=== PATIENT | female | born 1980 | race Caucasian/White ===

== ENCOUNTER 2023-10-28 14:43 | Outpatient (CLI) | payer OTHER, SELFPAY ==
--- NOTE | ~2023-10-28 | US_ITS ---
US pelvic complete w TV Ordering provider: Su Saleem APRN History: . N93.9 - Abnormal uterine and vaginal bleeding, unspecified . Comparison: None. Technique: Transabdominal and endovaginal ultrasound of the pelvis (Doppler ultrasound interrogation techniques used as needed for this exam.) FINDINGS: CERVIX: Nabothian cysts. UTERUS: Measures 8.7x 3.3x 4.3 cm in length which is within normal limits and is anteverted. No myom etrial masses. 2 anechoic areas in the fundus with the largest measures 1.6 x 1.5 x 1.3 cm. Echogenic foci most likely calcifications are seen in the fundus near the cysts. ENDOMETRIUM: Normal in thickness measuring 4.4 mm. (Note: the premenopausal endometrium may measure u p to 16 mm when in the secretory phase.) No endometrial masses, cysts or fluid. CUL DE SAC: Minimal free fluid. RIGHT OVARY: Not seen. LEFT OVARY: Normal in size measuring 4x 2.7x 2.5 Normal echotexture. Doppler vascular flow present. ADNEXA: Normal. No mass. IMPRESSION: Cystic areas with adjacent calcification in the uterus fundus. Nabothian cysts. Otherwise, normal pel nghia ultrasound. Reviewed, dictated and finalized at location A. IMPRESSION: Cystic areas with adjacent calcification in the uterus fundus. Nabothian cysts. Otherwise, normal pelvic ultrasound.
== END 2023-10-28 14:44 | disposition home or self-care (01) ==
PROVIDERS: Visit Provider Nurse Practitioner Family
DX: N93.9 Abnormal uterine and vaginal bleeding, unspecified (principal)
CPT/HCPCS: 76830; 76856